=== PATIENT | female | born 2000 | race Hispanic/Latino ===

== ENCOUNTER 2025-03-10 10:23 | Emergency (ER) | payer OTHER ==
[~2025-03-10] VITALS: Ht 162.6 cm; Wt 96.9 kg
[2025-03-10] MEDS ORDERED: LATUDA60 MG (10:40)
[2025-03-10] MEDS ORDERED: MIRTAZAPINE7.5 MG PO (10:42)
[2025-03-10] MEDS ORDERED: LORazepam 2 MG/ML VIAL IV ONE ×2 (10:45→14:00)
[2025-03-10] MEDS ORDERED: SODIUM BICARBONATE 50 MEQ in DEXTROSE 5% 1,000 ML IV SCH (10:45)
[2025-03-10] MEDS ORDERED: SODIUM BICARBONATE 150 MEQ in DEXTROSE 5% 1,000 ML IV SCH (10:45)
[2025-03-10 10:55] LABS: BASOPHILS 0.7 % (0.1-1.2); EOSINOPHILS 0.6 % (0.7-5.8); LYMPHOCYTES 29.5 % (19.3-51.7); MCH 28.4 PG (25.6-32.2); MCHC 33.2 g/dL (32.2-35.5); MCV 85.6 fL (79.4-94.8); MONOCYTES 6.1 % (4.7-12.5); NEUTROPHILS 62.8 % (34.0-71.1); RBC 4.44 M/uL (3.93-5.22)
[2025-03-10] MEDS ORDERED: MIDAZOLAM HCL 2 MG/2 ML VIAL IM ONE (11:00)
[2025-03-10] MEDS ORDERED: HALOPERIDOL LACTATE 5 MG/ML VIAL IM ONE (11:00)
[2025-03-10 11:14] LABS: ALT (SGPT) 65 U/L (14-59); AST (SGOT) 31 U/L (15-37); GLOMERULAR FILTRATION RATE,EST 65 mL/min (>60); PROTEIN, TOTAL 8.3 g/dL (6.4-8.2); UREA NITROGEN 13 mg/dL (7-18)
[2025-03-10 11:22] LABS: ALCOHOL, MEDICAL <3 ng/dL (<3)
[2025-03-10] MEDS ORDERED: SODIUM BICARBONATE 50 MEQ/50 ML VIAL IV ONE (11:30)
[2025-03-10 13:03] LABS: BLOOD/HGB, URINE LARGE (Negative); KETONE, URINE SMALL (Negative); LEUK ESTERASE, URINE MODERATE (negative); NITRITE, URINE POSITIVE (negative)
[2025-03-10 13:04] LABS: EPITHELIAL CELLS, URINE 0 /lpf (0-1+)
[2025-03-10 13:05] LABS: BACTERIA, URINE RARE /hpf (negative); CASTS, URINE NONE SEEN \\lpf; CRYSTALS, URINE NONE SEEN (0-1+); REFLEX CULTURE, URINE No (No)
[2025-03-10 13:14] LABS: AMPHETAMINES, URINE NEGATIVE (NEGATIVE); BARBITURATES, URINE NEGATIVE (NEGATIVE); BENZODIAZEPINE, URINE POSITIVE (NEGATIVE); CANNABINOID, URINE NEGATIVE (NEGATIVE); COCAINE, URINE NEGATIVE (NEGATIVE); ECSTASY, URINE NEGATIVE (NEGATIVE); FENTANYL, URINE NEGATIVE (NEGATIVE); METHADONE, URINE NEGATIVE (NEGATIVE); OPIATES, URINE NEGATIVE (NEGATIVE); OXYCODONE, URINE NEGATIVE (NEGATIVE); PHENCYCLIDINE, URINE NEGATIVE (NEGATIVE)
--- OUTSIDE RECORDS SUMMARY | 2025-03-10 13:28 | XMS ---
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 No recent Security Events currently on file CRITERIA MET - 6 ED Visits in 6 Months - [facility] - 3 Facilities in 90 Days CARE PROVIDERS LINSEY ALVAREZ Counselor: Mental Health Nikki BROOKS PHONE: [phone] HARIS MENDOZA [facility] Current PHONE: [phone] RUSS HUNT Counselor: Mental Health Current PHONE: [phone] JAIDA HOOKS Current PHONE: [phone] JORJE ALLISON Psychiatry \T\ Neurology: Psychiatry Current PHONE: [phone] AGUSTIN WATKINS Pricing/Signage Team Member Nikki SOTOFFER PHONE: [phone] JUDY KOROMA Counselor: Mental Health Current PHONE: [phone] COLETTE AHN Counselor: Mental Health Current PHONE: [phone] CASSANDRA POLANCO Psychiatry \T\ Neurology: Psychiatry Current PHONE: [phone] Trudy Cornell Emt B/Bread Molder Current PHONE: [phone] Amanda has no Care Guidelines for this patient. E.D. VISIT COUNT (12 MO.) 3 [place] Maria Teresa Diaz 2 Pauly Marques [facility]. TOTAL 7 NOTE: Visits indicate total known visits. ED/UCC VISIT TRACKING (12 MO.) 03/10/2025 10:58 PHILIP Lloyd TYPE: Emergency COMPLAINT: - SEIZURE 01/11/2025 20:08 [place] Maria Teresa Diaz TYPE: Emergency DIAGNOSES: - Conversion disorder with seizures or convulsions - Seizure (Adult - Prior Hx Of) 01/11/2025 11:53 Jacklyn AMARAL TYPE: Emergency DIAGNOSES: 1. Unspecified convulsions 2. Unspecified injury of head, initial encounter 3. Unspecified injury of head, initial encounter 4. Unspecified convulsions 5. Obesity, unspecified 01/06/2025 22:19 [place] Maria Teresa Diaz TYPE: Emergency DIAGNOSES: - Contusion of right hand, initial encounter - Unspecified convulsions - Possible [facility] DIAGNOSES: - Allergy, unspecified, initial encounter - Schizophrenia, unspecified - Seizure (Adult - [place]) 12/27/2024 17:37 Pauly AMARAL TYPE: Emergency COMPLAINT: - SUICIDAL DIAGNOSES: - Brief psychotic disorder - Encounter for screening for COVID-19 - Suicidal ideations 04/21/2024 22:35 Pauly AMARAL TYPE: Emergency COMPLAINT: - CRISIS DIAGNOSES: - Major depressive disorder, single episode, unspecified INPATIENT VISIT TRACKING (12 MO.) 04/22/2024 11:00 [facility] TYPE: Inpatient COMPLAINT: - [facility]PT[facility]IENT UN[facility] ADULT DIAGNOSES: - Anemia, unspecified - Anemia, unspecified - Anxiety disorder, unspecified - Anxiety disorder, unspecified - Constipation, unspecified - Family history of diabetes mellitus - Family history of diabetes mellitus - Insomnia, unspecified - Insomnia, unspecified - Morbid (severe) obesity due to excess calories - Morbid (severe) obesity due to excess calories - Nonscarring hair loss, unspecified - Nonscarring hair loss, unspecified - Other constipation - Other constipation - Other fpc (current) drug therapy - Other terminal carman (current) drug therapy - Schizoaffective disorder, unspecified - Schizoaffective disorder, unspecified - Schizoaffective disorder, unspecified - Suicidal ideations - Suicidal ideations - Unemployment, unspecified - Unemployment, unspecified - Unspecified intellectual disabilities - Unspecified intellectual disabilities [email or web address]
[2025-03-10] MEDS ORDERED: POTASSIUM CHLORIDE 20 MEQ/15 ML CUP PO ONE (13:45)
[2025-03-10] MEDS ORDERED: POTASSIUM CHLORIDE 10 MEQ/100 ML BAG IV SCH (13:45)
[2025-03-10] MEDS ORDERED: LORazepam 2 MG/ML VIAL ONE (13:48)
[2025-03-10 16:05] VITALS: BP 119/80
--- NOTE | 2025-03-11 16:25 | EKG ---
[facility] [address] [place] [address] Signed Sinus tachycardia Otherwise normal ECG No previous ECGs available Confirmed by Bradford Bobby MD () on 03/11/2025 4:25:04 PM Electronically Signed By: BRADFORD BOBBY MD 03/11/25 1625 PATIENT NAME: SABINO TIMHANNAH FRANCISCO Electrocardiogram DATE OF : 4 PHYSICIAN: BRADFORD BOBBY MD REPORT #: [id number] REPORT IS CONFIDENTIAL AND NOT TO BE RELEASED WITHOUT AUTHORIZATION
--- NOTE | 2025-03-12 21:50 | EKG ---
[facility] [address] [facility] [place] [address] Signed Normal sinus rhythm Possible Left atrial enlargement Borderline ECG When compared with ECG of 10-MAR-2025 11:11, No significant change was found Confirmed by Bradford Bobby MD () on 03/12/2025 9:50:00 PM Electronically Signed By: BRADFORD BOBBY MD 03/12/252149 PATIENT NAME: HANNAH DEE Electrocardiogram DATE OF : 4 PHYSICIAN: BRADFORD BOBBY MD REPORT #: [id number] REPORT IS CONFIDENTIAL AND NOT TO BE RELEASED WITHOUT AUTHORIZATION
== END 2025-03-10 15:53 | disposition short-term general hospital (02) ==
LOC: ED 10:23
PROVIDERS: Emergency Medicine
DX: T43.014A Poisoning by tricyclic antidepressants, undetermined, initial encounter (principal); R56.9 Unspecified convulsions; Z79.899 Other long term (current) drug therapy
CPT/HCPCS: 36415; 70450; 80053; 80307; 81001; 83735; 84703; 85025; 93005; 93010; 96365; 96372; 96375; 99285-25; G0480; J1200; J1630; J1953; J2060; J2250; J3480